=== PATIENT | female | born 1970 | race Caucasian/White ===

== ENCOUNTER 2022-04-11 23:38 | Emergency (ER) | payer OTHER, SELFPAY ==
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
[2022-04-11 23:49] VITALS: BP 113/73; BP 130/78; PULSE 91; PULSE 92; RESP 16; TEMP 37; O2SAT 96; BMI 26.4
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
--- NOTE | 2022-04-11 23:59 | ECG_ITS ---
Test Reason : CHEST PAIN Blood Pressure : / mmHG Vent. Rate : 089 BPM Atrial Rate : 089 BPM P-R Int : 130 ms QRS Dur : 080 ms QT Int : 368 ms P-R-T Axes : 071 049 043 degrees QTc Int : 447 ms Normal sinus rhythm Possible Left atrial enlargement RSR' or QR pattern in V1 suggests right ventricular conduction delay Borderline ECG No previous ECGs available Referred By: Julio Echavarria Electronically Signed By:PORSCHE REYNOSO MD
[2022-04-12] MEDS: ondansetron HCL 4 MG/2 ML VIAL IVPUSH (00:17)
[2022-04-12] MEDS: Ketorolac Tromethamine 15 MG/ML VIAL IVPUSH (00:17)
[2022-04-12 00:30] LABS: Basophils Percent Auto 0.3 % (0-2); Eosinophils Absolute Auto 0.1 X10*3/uL (0.0-0.4); Eosinophils Percent Auto 0.4 % (0-4); Hematocrit 40.6 % (37.0-47.0); Hemoglobin 14.1 g/dl (12.0-16.0); Imm Gran Abs Auto 0.08 X10*3/uL (0.00-0.03); Imm Gran Pct Auto 0.7 % (0.0-0.4); Lymphocytes Absolute Auto 1.8 X10*3/uL (1.2-4.9); Lymphocytes Percent Auto 15.1 % (20-40); MANUAL DIFF FLAG NO; Mean Corpuscular HGB Conc 34.7 g/dl (31.0-35.0); Mean Corpuscular Volume 92.3 fL (80.0-98.0); Mean Platelet Volume 9.6 fL (9.4-12.3); Monocytes Absolute Auto 0.7 X10*3/uL (0.1-1.2); Monocytes Percent Auto 6.1 % (2-11); Neutrophils Percent Auto 77.4 % (45-73); Platelet Count 292 X10*3/uL (160-400); Red Cell Distribution Width 11.7 % (11.0-16.0); White Blood Count 11.6 X10*3/uL (4.8-10.8)
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
[2022-04-12 00:35] LABS: INTERNATIONAL NORM RATIO 0.9 (0.9-1.1)
[2022-04-12 00:38] LABS: Partial Thromboplastin Time 30.4 SEC (26.0-36.4)
[2022-04-12 00:45] LABS: COVID-19 Test Negative (Negative); IDNOW Serial# 16C4AD1C; IDNOW Serial# BCCEAD1C; Influenza A Negative (Negative); Influenza B2 Negative (Negative)
[2022-04-12 00:53] LABS: Alanine Aminotransferase 35 U/L (0-31); Albumin Level 4.6 g/dL (3.5-5.0); Alkaline Phosphatase 107 U/L (39-117); Anion Gap 17 (12-20); Aspartate Amino Transferase 38 U/L (5-31); Bilirubin Total 0.3 mg/dL (0.0-1.0); Blood Urea Nitrogen 10 mg/dL (9-16); Calcium 9.1 mg/dL (8.4-10.2); Carbon Dioxide 24 mmol/L (22-29); Chloride 109 mmol/L (96-108); Creatinine Clr Calc Pharmacy 69.3; Estimated Glomerular Filt Rate > 60; Glucose Random 107 mg/dL (60-115); Potassium 4.4 mmol/L (3.3-5.1); Sodium 146 mmol/L (135-145); Total Protein 7.3 g/dL (6.5-8.0)
[2022-04-12 00:55] LABS: Troponin-I High Sensitivity < 3.5 ng/L (<3.5-17.0)
[2022-04-12 01:00] LABS: Appearance Urine Clear; Color Urine Yellow; Glucose Urine UA Negative (Negative); Leukocyte Esterase Urine Moderate (2+) (Negative); Nitrite Urine Negative (Negative); PH 5.5 (5.0-9.0); Specific Gravity - Urine 1.015 (1.005-1.025); UMIC TRIGGER UACC YES; Urine Blood Negative (Negative); Urine Ketones Negative (Negative); Urine Protein Negative (Neg-Trace)
[2022-04-12 01:05] LABS: Bacteria Urine None Seen (None Seen); Hyaline Casts Urine 0-2 /LPF (0-2); RBC Urine 0-2 /HPF (0-2); Squamous Epithelial Cell Urine 0-2 /HPF (0-2); UACC Culture Trigger YES
[2022-04-12 01:15] LABS: Amphetamine Screen Urine Not Detected (Not Detect); Barbiturates, Urine Not Detected (Not Detect); Benzodiazepines Screen Urine Not Detected (Not Detect); Cannabinoid Screen Urine Not Detected (Not Detect); Cocaine Screen Urine Not Detected (Not Detect); Fentanyl, urine Not Detected (Not Detect); Opiate Screen Urine Not Detected (Not Detect); Phencyclidine Screen Urine Not Detected (Not Detect)
[2022-04-12 01:23] VITALS: BP 102/49; PULSE 91; RESP 16; TEMP 36.8; O2SAT 95
[2022-04-12 01:24] VITALS: BP 102/49; PULSE 93; RESP 16; TEMP 36.8
[2022-04-12] MEDS: oxyCODONE HCl Immed Release 5 MG TABLET 10 MG PO (01:24)
== END 2022-04-12 01:40 ==
LOC: HO.ED 04-12 01:39
PROVIDERS: Emergency Provider Emergency Medicine Emergency Medical Services
DX: S22.32XA Fracture of one rib, left side, initial encounter for closed fracture (principal); Y01.XXXA Assault by pushing from high place, initial encounter; F17.210 Nicotine dependence, cigarettes, uncomplicated; Y93.89 Activity, other specified; Y92.009 Unspecified place in unspecified non-institutional (private) residence as the place of occurrence of the external cause; Y99.9 Unspecified external cause status; Z20.822 Contact with and (suspected) exposure to COVID-19
CPT/HCPCS: 71101; 80053; 80307; 81001; 84484; 85025; 85610; 85730; 87086; 87502; 87635; 93005; 96374; 96375; 99284; J1885; J2405

== ENCOUNTER 2022-10-14 09:19 | Emergency (ER) | payer OTHER, SELFPAY ==
--- NOTE | ~2022-10-14 | XR_ITS ---
EXAMINATION: XR CHEST CLINICAL INFORMATION: Chest pain. COMPARISON: 04/04/2022 chest and rib radiographs. TECHNIQUE: Frontal view of the chest was obtained. FINDINGS: Mild bibasilar linear markings are seen. The left upper lung field and right lung are clear. The heart and mediastinal structures are unremarkable. Anterior and posterior cervical spine fusion hardware is again noted without abnormality in the visualized portions. The visualized osseous structures are unremarkable. XR/XR chest 1V IMPRESSION: Mild left basilar linear atelectasis/scarring with mild interval decrease. No acute cardiopulmonary process.
[2022-10-14 09:29] VITALS: BP 132/87; PULSE 91; RESP 18; TEMP 36.9; O2SAT 98; BMI 27.5
--- NOTE | 2022-10-14 09:39 | ECG_ITS ---
Test Reason : cp Blood Pressure : / mmHG Vent. Rate : 087 BPM Atrial Rate : 087 BPM P-R Int : 136 ms QRS Dur : 074 ms QT Int : 358 ms P-R-T Axes : 075 054 043 degrees QTc Int : 430 ms Normal sinus rhythm Normal ECG When compared with ECG of 12-APR-2022 00:02, No significant change was found Referred By: Generic ED Physician Electronically Signed By:VIANEY WRIGHT MD
[2022-10-14 10:05] LABS: MANUAL DIFF FLAG NO
[2022-10-14 10:06] LABS: Basophils Percent Auto 0.4 % (0-2); Eosinophils Absolute Auto 0.1 X10*3/uL (0.0-0.4); Eosinophils Percent Auto 1.4 % (0-4); Hematocrit 41.7 % (37.0-47.0); Imm Gran Abs Auto 0.02 X10*3/uL (0.00-0.03); Imm Gran Pct Auto 0.3 % (0.0-0.4); Lymphocytes Absolute Auto 1.7 X10*3/uL (1.2-4.9); Lymphocytes Percent Auto 22.8 % (20-40); Mean Corpuscular Hemoglobin 33.1 pg (27.0-33.0); Mean Corpuscular Volume 92.1 fL (80.0-98.0); Mean Platelet Volume 9.8 fL (9.4-12.3); Monocytes Absolute Auto 0.5 X10*3/uL (0.1-1.2); Monocytes Percent Auto 7.2 % (2-11); Neutrophils Percent Auto 67.9 % (45-73); Platelet Count 229 X10*3/uL (160-400); Red Blood Count 4.53 X10*6/uL (4.20-5.50); Red Cell Distribution Width 11.5 % (11.0-16.0); White Blood Count 7.3 X10*3/uL (4.8-10.8)
[2022-10-14 10:45] LABS: Anion Gap 14 (12-20); Blood Urea Nitrogen 10 mg/dL (9-16); Calcium 10.6 mg/dL (8.4-10.2); Carbon Dioxide 22 mmol/L (22-29); Chloride 106 mmol/L (96-108); Creatinine Clr Calc Pharmacy 70.4; Estimated Glomerular Filt Rate > 60; Glucose Random 93 mg/dL (60-115); Potassium 4.7 mmol/L (3.3-5.1); Sodium 137 mmol/L (135-145)
--- NOTE | 2022-10-14 13:31 | ED_ITS ---
HPI - URI/Sore Throat General Chief Complaint: Upper Respiratory Symptoms Stated Complaint: shoulder neck head pain diff breathing Time Seen by Provider: 10/14/22 12:05 History of Present Illness HPI Narrative: Patient complains of worsening sinus congestion and cough over past weeks She was treated for sinusitis about a month ago and symptoms improved briefly and then returned Today she has no headache no stiff not no difficulty breathing or swallowing no sore throat no chest pain no shortness of breath no abdominal pain nausea vomiting or diarrhea, no dysuria no rash Related Data Previous Rx's Medication Instructions Recorded oxycodone 5 mg tablet 5 mg PO Q4H PRN pain #14 tabs 04/12/22 benzonatate 200 mg capsule 200 mg PO BID PRN cough #14 caps 10/14/22 doxycycline hyclate 100 mg capsule 100 mg PO BID 7 days #14 caps 10/14/22 oxymetazoline 0.05 % nasal spray 2 spray intranasal Q12H PRN nasal 10/14/22 congestion 5 days #22 mL prednisone 20 mg tablet 60 mg PO DAILY 5 days #15 tabs 10/14/22 Allergies Allergy/AdvReac Type Severity Reaction Status Date / Time morphine Allergy Hives Verified 04/11/22 23:59 [facility] Past Medical History Source: nursing notes reviewed Social History Social History Advance Directives: No Physical Exam Vital Signs: Vital Signs: Last Vital Signs Temp 98.4 F 10/14/22 09:29 Pulse 91 10/14/22 09:29 Resp 18 10/14/22 09:29 BP 132/87 10/14/22 09:29 Pulse Ox 98 10/14/22 09:29 O2 Del Method Room Air 10/14/22 09:29 BMI result Body Mass Index 27.5 General appearance no distress Eyes no redness or discharge The sinuses there is maxillary sinus tenderness bilateral, pain is worse with head down the nose is very congested The pharynx is clear without redness swelling or exudate Neck is supple Chest is clear to auscultation bilateral Heart no murmur Abdomen soft nontender Extremities range of motion x4 Skin no rash Neuro no focal deficit Course Course Course Narrative: Patient with a sinusitis possibly allergic or viral possibly bacterial is treated with antibiotic an allergy medicines and symptomatic relief, is otherwise well-appearing and is discharged Medical Decision Making Lab Data 10/14/22 09:50 06/01/23 09:50 Labs: Lab Results 10/14/22 10/14/22 Range/Units 09:50 09:50 WBC 7.3 (4.8-10.8) X10*3/uL RBC 4.53 (4.20-5.50) X10*6/uL Hgb 15.0 (12.0-16.0) g/dl Hct 41.7 (37.0-47.0) % MCV 92.1 (80.0-98.0) fL MCH 33.1 H (27.0-33.0) pg MCHC 36.0 H (31.0-35.0) g/dl RDW 11.5 (11.0-16.0) % Plt Count 229 (160-400) X10*3/uL MPV 9.8 (9.4-12.3) fL Immature Gran % (Auto) 0.3 (0.0-0.4) % Neut % (Auto) 67.9 (45-73) % Lymph % (Auto) 22.8 (20-40) % [place] % (Auto) 7.2 (2-11) % Eos % (Auto) 1.4 (0-4) % Baso % (Auto) 0.4 (0-2) % Lymph # (Auto) 1.7 (1.2-4.9) X10*3/uL [place] # (Auto) 0.5 (0.1-1.2) X10*3/uL Eos # (Auto) 0.1 (0.0-0.4) X10*3/uL Baso # (Auto) 0.0 (0.0-0.2) X10*3/uL Abs Immat Gran (auto) 0.02 (0.00-0.03) X10*3/uL Absolute Neuts (auto) 5.0 (2.0-8.3) x10*3/uL Absolute Nucleated RBC 0.000 (0.0-0.012) X10*3/uL Nucleated RBC % (auto) 0.0 (0.0-0.2) /100WBC Sodium 137 (135-145) mmol/L Potassium 4.7 (3.3-5.1) mmol/L Chloride 106 (96-108) mmol/L Carbon Dioxide 22 (22-29) mmol/L Anion Gap 14 (12-20) BUN 10 (9-16) mg/dL Creatinine 0.78 (0.5-1.4) mg/dL Estim Creat Clear Calc 70.4 Estimated GFR > 60 Random Glucose 93 (60-115) mg/dL Calcium 10.6 H D (8.4-10.2) mg/dL Discharge Plan Discharge Clinical Impression: Sinusitis Patient Disposition: Home, Self-Care Additional Instructions: We are treating the congestion and cough with antibiotic doxycycline in case the re is a bacterial component For congestion the best decongestant is Afrin nasal spray which can be used twice a day up to 5 days but then it may have a rebound effect causing congestion to return We are using prednisone which may help the congestion and will also help her asthma Today you are not wheezing but you been using her pump frequently so we are writing for 5 more days of prednisone Continue using her Zyrtec and Flonase COVID test was negative, no acute finding on the labs and chest x-ray was normal Return any time any worse condition or any concerns Prescriptions: New oxymetazoline 0.05 % spray,non-aerosol 2 spray intranasal Q12H PRN (Reason: nasal congestion) 5 Days Qty: 22 0RF doxycycline hyclate 100 mg capsule 100 mg PO BID 7 Days Qty: 14 0RF prednisone 20 mg tablet 60 mg PO DAILY 5 Days Qty: 15 0RF benzonatate 200 mg capsule 200 mg PO BID PRN (Reason: cough) Qty: 14 0RF No Action oxycodone 5 mg tablet 5 mg PO Q4H PRN (Reason: pain) Qty: 14 0RF Rx Instructions: Patient may request partial fill; Partial Fill upon patient request. Interventions: ED Discharge Assessment Last Done: 10/14/22 14:13 Discharge Date/Time: 10/14/22 14:14
== END 2022-10-14 14:14 | disposition home or self-care (01) ==
PROVIDERS: Emergency Provider Emergency Medicine Emergency Medical Services; PCP Nurse Practitioner Family
DX: J32.9 Chronic sinusitis, unspecified (principal); R05.9 Cough, unspecified; R07.89 Other chest pain; Z79.899 Other long term (current) drug therapy
CPT/HCPCS: 36415; 71045; 80048; 85025; 93005; 99283